=== PATIENT | female | born 1990 | race African-American/Black ===

== ENCOUNTER 2018-04-17 12:01 | Inpatient (IN) | payer OTHER ==
[2018-04-17] MEDS: LACTATED RINGER'S 1,000 ML IV* ×2 (14:48→22:48)
[2018-04-17 15:00] LABS: ADD MAN DIFF? NO
[2018-04-17] MEDS ORDERED: LIDOCAINE 1% (MPF) 30 ML INJ INJ (15:00)
[2018-04-17] MEDS ORDERED: MISOPROSTOL 200 MCG TAB PR (15:00)
[2018-04-17] MEDS: AMPICILLIN 2 GM/NS (PMX) 100 ML IV (15:00)
[2018-04-17] MEDS ORDERED: OXYTOCIN 30 UNITS/LR 500 ML IV (15:00)
[2018-04-17] MEDS ORDERED: IBUPROFEN 600 MG TAB PO (15:00)
[2018-04-17] MEDS ORDERED: METHYLERGONOVINE 0.2 MG INJ IM (15:00)
[2018-04-17] MEDS ORDERED: CARBOPROST 250 MCG INJ IM (15:00)
[2018-04-17 15:03] LABS: BASOPHILS % 0.3 % (0.0-2.0); EOSINOPHILS # 0.1 10^3/ul (0.0-0.5); EOSINOPHILS % 0.6 % (0.0-7.0); HEMATOCRIT 33.2 % (37.0-47.0); HEMOGLOBIN 11.4 g/dl (12.0-16.0); LYMPHOCYTES # 1.8 10^3/ul (0.8-2.9); LYMPHOCYTES % 22.1 % (15.0-51.0); MEAN CORPUSCULAR HEMOGLOBIN 32.5 pg (29.0-33.0); MEAN CORPUSCULAR HGB CONC 34.3 g/dl (32.0-37.0); MEAN CORPUSCULAR VOLUME 94.6 fl (82.0-101.0); MEAN PLATELET VOLUME 9.7 fl (7.4-10.4); MONOCYTE # 0.7 10^3/ul (0.3-0.9); MONOCYTES % 8.6 % (0.0-11.0); NEUTROPHIL # 5.4 10^3/ul (1.6-7.5); PLATELET COUNT 217 10^3/UL (140-415); RED BLOOD COUNT 3.51 10^6/ul (4.20-5.40); RED CELL DISTRIBUTION WIDTH 13.3 % (11.5-14.5)
[2018-04-17 15:22] LABS: INR 0.89; PROTIME 12.1 Sec (11.9-14.9); PT RATIO 0.9
[2018-04-17 15:23] LABS: PARTIAL THROMBOPLASTIN TIME 34.1 Sec (25.0-35.0)
[2018-04-17 16:07] LABS: HEPATITIS B SURFACE ANTIGEN NEGATIVE (NEGATIVE)
[2018-04-17] MEDS: AMPICILLIN 1 GM/NS (PMX) 50 ML IV (18:30)
[2018-04-18] MEDS: AMPICILLIN 1 GM/NS (PMX) 50 ML IV ×6 (02:30→22:30)
[2018-04-18] MEDS: LACTATED RINGER'S 1,000 ML IV* ×2 (07:13→15:38)
[2018-04-18 16:08] LABS: RAPID PLASMA REAGIN NONREACTIVE (NR)
[2018-04-19] MEDS: LACTATED RINGER'S 1,000 ML IV* ×3 (00:33→18:13)
[2018-04-19] MEDS ORDERED: MISOPROSTOL 25 MCG CAPSULE PO ×2 (08:00)
[2018-04-19] MEDS: AMPICILLIN 2 GM/NS (PMX) 100 ML IV (08:36)
[2018-04-19 09:07] LABS: AMPHETAMINE/METHAMPHETAMINE Negative (NEGATIVE); BARBITURATES Negative (NEGATIVE); BENZODIAZEPINES Negative (NEGATIVE); CANNABINOIDS Negative (NEGATIVE); COCAINE Negative (NEGATIVE); OPIATES Negative (NEGATIVE)
[2018-04-19] MEDS ORDERED: MISOPROSTOL 25 MCG CAPSULE (10:02)
[2018-04-19] MEDS: MISOPROSTOL 25 MCG CAPSULE PO ×3 (10:06→20:55)
[2018-04-19] MEDS: AMPICILLIN 1 GM/NS (PMX) 50 ML IV ×3 (12:39→20:54)
[2018-04-20] MEDS: MISOPROSTOL 25 MCG CAPSULE PO ×6 (01:06→18:58)
[2018-04-20] MEDS: AMPICILLIN 1 GM/NS (PMX) 50 ML IV ×9 (01:07→23:23)
[2018-04-20] MEDS: LACTATED RINGER'S 1,000 ML IV* ×3 (03:13→12:59)
[2018-04-20] MEDS: OXYTOCIN 30 UNITS/LR 500 ML IV (23:22)
[2018-04-21] MEDS: BUTORPHANOL 2 MG INJ IV (00:51)
[2018-04-21] MEDS: LACTATED RINGER'S 1,000 ML IV* ×6 (00:57→22:44)
[2018-04-21] MEDS ORDERED: FENTAnyl 2MCG/ML-ROPIV 0.2% 100 ML (01:42)
[2018-04-21] MEDS ORDERED: NALOXONE (0.4 MG/ML) INJ IV (02:00)
[2018-04-21] MEDS ORDERED: LACTATED RINGER'S 1,000 ML IV (02:04)
[2018-04-21] MEDS: AMPICILLIN 1 GM/NS (PMX) 50 ML IV ×2 (02:50→06:41)
[2018-04-21] MEDS: FENTAnyl 2MCG/ML-ROPIV 0.2% 100 ML BAG EPI ×2 (09:38→09:48)
[2018-04-21] MEDS: OXYTOCIN 30 UNITS/LR 500 ML IV (12:05)
[2018-04-21] MEDS ORDERED: CARBOPROST 250 MCG INJ IM (15:00)
[2018-04-21] MEDS ORDERED: METHYLERGONOVINE 0.2 MG INJ IM (15:00)
[2018-04-21] MEDS ORDERED: MISOPROSTOL 200 MCG TAB PR (15:00)
[2018-04-21] MEDS ORDERED: OXYTOCIN 30 UNITS/LR 500 ML IV (15:00)
[2018-04-21] MEDS: ACETAMINOPHEN 325 MG TAB PO (15:26)
[2018-04-21] MEDS: BENZOCAINE 20% 56 ML SPRAY TOP (15:26)
[2018-04-21] MEDS: WITCH HAZEL/GLYCERIN PAD PR (15:27)
[2018-04-21] MEDS: DIBUCAINE 1% 30 GM OINT PR (15:28)
[2018-04-21] MEDS: LANOLIN 7 GM TUBE TOP (15:29)
[2018-04-21] MEDS: IBUPROFEN 600 MG TAB PO ×2 (17:17→23:37)
[2018-04-21] MEDS: SENNA/DOCUSATE NA (8.6MG/50MG) TAB PO (21:19)
[2018-04-22] MEDS: HYDROCODONE/APAP (5/325) TAB PO (02:37)
[2018-04-22] MEDS: IBUPROFEN 600 MG TAB PO ×3 (05:59→18:25)
[2018-04-22] MEDS: LACTATED RINGER'S 1,000 ML IV* ×2 (06:23)
[2018-04-22 06:49] LABS: ADD MAN DIFF? NO
[2018-04-22 07:05] LABS: WHITE BLOOD COUNT 14.1 10^3/ul (4.8-10.8)
[2018-04-22 07:05] LABS: BASOPHILS % 0.2 % (0.0-2.0); EOSINOPHILS # 0.1 10^3/ul (0.0-0.5); EOSINOPHILS % 0.4 % (0.0-7.0); HEMATOCRIT 24.7 % (37.0-47.0); HEMOGLOBIN 8.4 g/dl (12.0-16.0); LYMPHOCYTES # 2.4 10^3/ul (0.8-2.9); LYMPHOCYTES % 16.8 % (15.0-51.0); MEAN CORPUSCULAR HEMOGLOBIN 32.6 pg (29.0-33.0); MEAN CORPUSCULAR VOLUME 95.7 fl (82.0-101.0); MEAN PLATELET VOLUME 10.4 fl (7.4-10.4); MONOCYTE # 0.9 10^3/ul (0.3-0.9); MONOCYTES % 6.4 % (0.0-11.0); NEUTROPHIL # 10.7 10^3/ul (1.6-7.5); NEUTROPHILS % 75.8 % (39.0-77.0); PLATELET COUNT 175 10^3/UL (140-415); RED BLOOD COUNT 2.58 10^6/ul (4.20-5.40); RED CELL DISTRIBUTION WIDTH 13.2 % (11.5-14.5)
[2018-04-22] MEDS: SENNA/DOCUSATE NA (8.6MG/50MG) TAB PO ×2 (09:33→21:27)
[2018-04-22] MEDS: BENZOCAINE 20% 56 ML SPRAY TOP (12:42)
[2018-04-22] MEDS: WITCH HAZEL/GLYCERIN PAD PR (12:42)
[2018-04-22] MEDS: LANOLIN 7 GM TUBE TOP (12:42)
[2018-04-22] MEDS: FERROUS SULFATE (EC) 325 MG TAB PO (21:27)
[2018-04-23] MEDS: IBUPROFEN 600 MG TAB PO ×4 (01:58→11:56)
[2018-04-23] MEDS: SENNA/DOCUSATE NA (8.6MG/50MG) TAB PO (08:42)
[2018-04-23] MEDS: FERROUS SULFATE (EC) 325 MG TAB PO ×2 (08:42→14:14)
[2018-04-23] MEDS: BENZOCAINE 20% 56 ML SPRAY TOP (08:42)
[2018-04-23] MEDS: DIPHTH/TET/ACEL PERTUSS (ADULT) 0.5 ML VIAL IM* (12:59)
== END 2018-04-23 16:15 | disposition home or self-care (01) | DRG 775 ==
LOC: OBT 12:01 → PP1 04-21 14:24 → L-D 12:01 → OBT 14:00 → L-D 14:00
PROVIDERS: Obstetrics & Gynecology
PROC: 3E0P7VZ Introduction of Hormone into Female Reproductive, Via Natural or Artificial Opening (ICD-10-PCS; 2018-04-19)
PROC: 10E0XZZ Delivery of Products of Conception, External Approach (ICD-10-PCS; principal; 2018-04-21)
PROC: 0W8NXZZ Division of Female Perineum, External Approach (ICD-10-PCS; 2018-04-21)
DX: O48.0 Post-term pregnancy (principal); Z3A.40 40 weeks gestation of pregnancy; Z37.0 Single live birth; O76 Abnormality in fetal heart rate and rhythm complicating labor and delivery
CPT/HCPCS: 62319; 76815; 76818; 80307; 85025; 85610; 85730; 86592; 86850; 86900; 86901; 87340; 90715; 99464